=== PATIENT | male | born 1960 | race Caucasian/White ===

== ENCOUNTER → 2016-09-04 | Outpatient (CLI) | payer BC ==
[~2016-09-04] MED LIST: LISI-552 PO; PANT40TA2 PO; SUCR1TAB36 PO
--- OUTSIDE RECORDS SUMMARY | 2016-09-04 08:19 | XMS REPORT | Continuity of Care Document ---
Author Author Formerly [facility], 1928–1983 [facility] Address Unknown Phone Unavailable Allergies Medications Problems Date Dx Coded Attending Type Code Diagnosis Diagnosed By 07/30/2013 YUE GONG DO V04.81 FLU SHOT Procedures Results Encounters ACCT No. Visit Date/Time Discharge Status Pt. Type Provider Facility Loc./Unit Complaint [id number] 07/30/2013 12:19:00 07/30/2013 23: 59:59 CLS Outpatient YUE GONG DO
--- NOTE | 2016-09-04 14:24 | Diagnostic Imaging Report ---
PROCEDURE: US Gallbladder. TECHNIQUE: Multiple real-time grayscale images were obtained over the right upper quadrant in various projections. INDICATION: Epigastric pain with vomiting. FINDINGS: The visualized portions of the pancreas appear unremarkable. The liver demonstrates no focal lesion with homogeneous parenchyma. Hepatopetal flow in the portal vein is seen. The gallbladder demonstrates no stones. There is borderline wall thickness of the gallbladder at 4 mm probably exaggerated by the incomplete distention of the gallbladder. No pericholecystic fluid is seen. The CBD is not well seen with no intrahepatic biliary dilatation identified. The right kidney is 9.8 cm in length with no hydronephrosis or focal lesion. There is no fluid collection in the upper right abdomen. IMPRESSION: No gallstones. Slightly prominent appearance of the gallbladder wall which is probably related to incomplete distention of the gallbladder. This might be explained by recent meal. Dictated by: Dictated on workstation # [id number]
== END ==
LOC: RAD 08:16
PROVIDERS: ATTEND Nurse Practitioner
DX: R10.13 Epigastric pain (principal)
CPT/HCPCS: 76705

== ENCOUNTER → 2016-10-27 | Outpatient (CLI) | payer BC ==
--- NOTE | 2016-10-27 12:17 | Diagnostic Imaging Report ---
PA and lateral views of the chest Indication: Cough Findings: The lungs are clear. The heart size is normal. There is no effusion or pneumothorax The mediastinum and silvana appear unremarkable. Impression: Unremarkable study. Dictated by: Dictated on workstation # [id number]
== END ==
LOC: RAD 11:42
PROVIDERS: ATTEND Nurse Practitioner
DX: R05 Cough (principal); R09.89 Other specified symptoms and signs involving the circulatory and respiratory systems; Z87.891 Personal history of nicotine dependence
CPT/HCPCS: 71020

== ENCOUNTER → 2016-11-18 | Outpatient (CLI) | payer BC ==
--- NOTE | 2016-11-18 12:11 | Diagnostic Imaging Report ---
INDICATION: Pain. TECHNIQUE: Three views of the left foot were obtained. FINDINGS: The alignment is normal. There is no fracture or dislocation. The soft tissues are unremarkable. IMPRESSION: No acute fracture or dislocation. Dictated by: Dictated on workstation # [id number]
--- NOTE | 2016-11-18 12:51 | Diagnostic Imaging Report ---
3 views of the left foot. INDICATION: Left foot pain. FINDINGS: There is no fracture, dislocation or radiopaque foreign body. Joint alignment is satisfactory. IMPRESSION: Unremarkable exam. Dictated by: Dictated on workstation # [id number]
== END ==
LOC: RAD 10:27
PROVIDERS: ATTEND Nurse Practitioner
DX: M79.672 Pain in left foot (principal)
CPT/HCPCS: 73630; 73660

== ENCOUNTER → 2017-08-12 | Outpatient (CLI) | payer BC | LOC: RAD 07:54 | PROVIDERS: ATTEND Nurse Practitioner | DX: Z53.8 Procedure and treatment not carried out for other reasons (principal); S43.431A Superior glenoid labrum lesion of right shoulder, initial encounter; M75.111 Incomplete rotator cuff tear or rupture of right shoulder, not specified as traumatic ==

== ENCOUNTER 2017-11-27 08:45 | Outpatient (RCR) | payer BC | END 2017-11-30 | disposition home or self-care (01) | PROVIDERS: ATTEND Orthopaedic Surgery | DX: M25.511 Pain in right shoulder (principal) ==

== ENCOUNTER 2017-12-02 19:32 | Observation (INO) | payer BC ==
[~2017-12-02] VITALS: Ht 167.6 cm; Wt 77.1 kg
--- OUTSIDE RECORDS SUMMARY | 2017-12-02 19:37 | XMS REPORT | Continuity of Care Document ---
Author Author Formerly [facility] Address Unknown Phone Unavailable Allergies Active Description Code Type Severity Reaction Onset Reported/Identified Relationship to Patient Clinical Status Yes Iodine and Iodide Containing Produc [id number] Drug Allergy Unknown eyes swelled sh 02/12/2016 Yes Sulfa (Sulfonamide Antibiotics) [id number] Drug Allergy Unknown chest pain 02/12/2016 Medications There is no data. Problems Date Dx Coded Attending Type Code Diagnosis Diagnosed By 07/30/2013 YUE GONG DO V04.81 FLU SHOT 09/26/2015 Ot 780.60 09/26/2015 Ot 789.09 09/26/2015 Ot 780.60 09/26/2015 Ot 789.09 09/28/2015 Ot 780.60 09/28/2015 Ot 789.09 09/28/2015 Ot 780.60 09/28/2015 Ot 789.09 10/11/2015 Ot 780.60 10/11/2015 Ot 789.09 10/11/2015 Ot 780.60 10/11/2015 Ot 789.09 02/07/2016 Ot 780.60 FEVER, UNSPECIFIED 02/07/2016 Ot 789.09 ABDOMINAL PAIN, OTHER SPECIFIED SITE 02/07/2016 Ot 780.60 FEVER, UNSPECIFIED 02/07/2016 Ot 789.09 ABDOMINAL PAIN, OTHER SPECIFIED SITE 02/12/2016 MAINOR HOFF MD Ot K21.9 GASTRO-ESOPHAGEAL REFLUX DISEASE WITHOUT 02/12/2016 MAINOR HOFF MD Ot Z01.818 ENCOUNTER FOR OTHER PREPROCEDURAL EXAMIN 02/12/2016 MAINOR HOFF MD, Ot K21.9 GASTRO-ESOPHAGEAL REFLUX DISEASE WITHOUT 02/12/2016 MAINOR HOFF MD Ot Z01.818 ENCOUNTER FOR OTHER PREPROCEDURAL EXAMIN 02/12/2016 MAINOR HOFF MD Ot K21.9 GASTRO-ESOPHAGEAL REFLUX DISEASE WITHOUT 02/12/2016 MAINOR HOFF MD Ot Z01.818 ENCOUNTER FOR OTHER PREPROCEDURAL EXAMIN 02/12/2016 MAINOR HOFF MD Ot K21.9 GASTRO-ESOPHAGEAL REFLUX DISEASE WITHOUT 02/12/2016 MAINOR HOFF MD Ot Z01.818 ENCOUNTER FOR OTHER PREPROCEDURAL EXAMIN 02/12/2016 MAINOR HOFF MD Ot K21.9 GASTRO-ESOPHAGEAL REFLUX DISEASE WITHOUT 02/12/2016 MAINOR HOFF MD Ot Z01.818 ENCOUNTER FOR OTHER PREPROCEDURAL EXAMIN 02/13/2016 MAINOR HOFF MD Ot K21.9 GASTRO-ESOPHAGEAL REFLUX DISEASE WITHOUT 02/13/2016 MAINOR HOFF MD Ot Z01.818 ENCOUNTER FOR OTHER PREPROCEDURAL EXAMIN 02/13/2016 MAINOR HOFF MD Ot I10 ESSENTIAL (PRIMARY) HYPERTENSION 02/13/2016 MAINOR HOFF MD Ot K21.9 GASTRO-ESOPHAGEAL REFLUX DISEASE WITHOUT 02/13/2016 MAINOR HOFF MD Ot K29.70 GASTRITIS, UNSPECIFIED, WITHOUT BLEEDING 02/13/2016 MAINOR HOFF MD Ot K44.9 DIAPHRAGMATIC HERNIA WITHOUT OBSTRUCTION 02/14/2016 MAINOR HOFF MD Ot I10 ESSENTIAL (PRIMARY) HYPERTENSION 02/14/2016 MAINOR HOFF MD Ot K21.9 GASTRO-ESOPHAGEAL REFLUX DISEASE WITHOUT 02/14/2016 MAINOR HOFF MD Ot K29.70 GASTRITIS, UNSPECIFIED, WITHOUT BLEEDING 02/14/2016 MAINOR HOFF MD Ot K44.9 DIAPHRAGMATIC HERNIA WITHOUT OBSTRUCTION 02/18/2016 MAINOR HOFF MD Ot I10 ESSENTIAL (PRIMARY) HYPERTENSION 02/18/2016 MAINOR HOFF MD Ot K21.9 GASTRO-ESOPHAGEAL REFLUX DISEASE WITHOUT 02/18/2016 MAINOR HOFF MD Ot K29.70 GASTRITIS, UNSPECIFIED, WITHOUT BLEEDING 02/18/2016 MAINOR HOFF MD Ot K44.9 DIAPHRAGMATIC HERNIA WITHOUT OBSTRUCTION 09/04/2016 Ot 780.60 FEVER, UNSPECIFIED 09/04/2016 Ot 789.09 ABDOMINAL PAIN, OTHER SPECIFIED SITE 09/04/2016 Ot 780.60 FEVER, UNSPECIFIED 09/04/2016 Ot 789.09 ABDOMINAL PAIN, OTHER SPECIFIED SITE 09/05/2016 ABEBE, LEVI N BAR HELPER Ot R10.13 EPIGASTRIC PAIN 09/18/2016 LEVI LOMAS BAR HELPER Ot R10.13 EPIGASTRIC PAIN 10/27/2016 LEVI LOMAS BAR HELPER Ot R05 COUGH 10/27/2016 ABEBE LEVI N BAR HELPER Ot R09.89 OTH SYMPTOMS AND SIGNS INVOLVING THE CIR 10/27/2016 LUNA LOMASVIVIAN Malcolm BAR HELPER Ot Z87.891 PERSONAL HISTORY OF NICOTINE DEPENDENCE 11/14/2016 LEVI LOMAS BAR HELPER Ot R05 COUGH 11/14/2016 ABEBE LEVI N BAR HELPER Ot R09.89 OTH SYMPTOMS AND SIGNS INVOLVING THE CIR 11/14/2016 LEVI LOMAS BAR HELPER Ot Z87.891 PERSONAL HISTORY OF NICOTINE DEPENDENCE 12/04/2016 LEVI LOMAS APRN Ot M79.672 PAIN IN LEFT FOOT 08/13/2017 ARNEL MAIER Ot M75.111 INCOMPLETE ROTATR-CUFF TEAR/RUPTR OF R S 08/13/2017 ARNEL MAIER EXTRUSION DIE REPAIR MANAGER Ot S43.431A SUPERIOR GLENOID LABRUM LESION OF RIGHT 08/13/2017 ARNEL MAIER EXTRUSION DIE REPAIR MANAGER Ot Z53.8 PROCEDURE AND TREATMENT NOT CARRIED OUT 08/13/2017 ARNEL MAIER EXTRUSION DIE REPAIR MANAGER Ot M75.111 INCOMPLETE ROTATR-CUFF TEAR/RUPTR OF R S 08/13/2017 ARNEL MAIER EXTRUSION DIE REPAIR MANAGER Ot S43.431A SUPERIOR GLENOID LABRUM LESION OF RIGHT 08/13/2017 ARNEL MAIER EXTRUSION DIE REPAIR MANAGER Ot Z53.8 PROCEDURE AND TREATMENT NOT CARRIED OUT 09/30/2017 Ot 780.60 FEVER, UNSPECIFIED 09/30/2017 Ot 789.09 ABDOMINAL PAIN, OTHER SPECIFIED SITE 09/30/2017 Ot 780.60 FEVER, UNSPECIFIED 09/30/2017 Ot 789.09 ABDOMINAL PAIN, OTHER SPECIFIED SITE 09/30/2017 LEVI LOMAS BAR HELPER Ot R10.13 EPIGASTRIC PAIN 09/30/2017 LEVI LOMAS BAR HELPER Ot R05 COUGH 09/30/2017 LEVI LOMAS BAR HELPER Ot R09.89 OTH SYMPTOMS AND SIGNS INVOLVING THE CIR 09/30/2017 LEVI LOMAS BAR HELPER Ot Z87.891 PERSONAL HISTORY OF NICOTINE DEPENDENCE 09/30/2017 LEVI LOMAS APRN Ot M79.672 PAIN IN LEFT FOOT 09/30/2017 ARNEL MAIER Ot M75.111 INCOMPLETE ROTATR-CUFF TEAR/RUPTR OF R S 09/30/2017 ARNEL MAIER Ot S43.431A SUPERIOR GLENOID LABRUM LESION OF RIGHT 09/30/2017 ARNEL MAIER Ot Z53.8 PROCEDURE AND TREATMENT NOT CARRIED OUT 09/30/2017 WILBER NICKERSON MD Ot M25.511 PAIN IN RIGHT SHOULDER 10/02/2017 WILBER NICKERSON MD, Ot M25.511 PAIN IN RIGHT SHOULDER 10/21/2017 WILBER NICKERSON MD, Ot M25.511 PAIN IN RIGHT SHOULDER Procedures There is no data. Results There is no data. Encounters ACCT No. Visit Date/Time Discharge Status Pt. Type Provider Facility Loc./Unit Complaint [id number] 07/30/2013 12:19:00 07/30/2013 23:59:59 CLS Outpatient YUE GONG DO 01/201708/07/2017 09:28:34 08/07/2017 23:59:59 CLS Outpatient Marisela Harris [id number] 11/27/2017 08:45:00 11/30/2017 00:01:00 DIS Outpatient WILBER NICKERSON MD Via [facility] REHAB OPEN RCR R SHOULDER [id number] 08/12/2017 07:54:00 08/12/2017 23:59:59 CLS Outpatient ARNEL MAIER [facility] RAD ROTATOR CUFF TEAR PARTIAL RT [id number] 11/18/2016 10:27:00 11/18/2016 23:59:59 CLS Outpatient LEVI LOMAS BAR HELPER [facility] RAD LT FOOT AND 2ND TOE PAIN [id number] 10/27/2016 11:42:00 10/27/2016 23:59:59 CLS Outpatient LEVI LOMAS BAR HELPER [facility] RAD COUGH,CHEST CONGESTION [id number] 09/04/2016 08:16:00 09/04/2016 23:59:59 CLS Outpatient LEVI LOMAS BAR HELPER [facility] RAD R10.13 [id number] 02/13/2016 10:02:00 02/13/2016 12:30:00 DIS Outpatient MAINOR HOFF MD [facility] SDC REFLUX [id number] 02/12/2016 10:30:00 02/12/2016 11:15:00 DIS Outpatient MAINOR HOFF MD [facility] PREOP REFLUX [id number] 12/01/2017 00:11:00 PEN Preadmit WILBER NICKERSON MD [facility] REHAB OPEN RCR R SHOULDER [id number] 02/12/2016 11:08:00 Document Registration [id number] 05/06/2012 07:46:00 Document Registration [id number] 05/05/2012 15:43:00 Document Registration
[2017-12-02] MEDS ORDERED: LACTATED RINGERS 1,000 ML IV ONE (19:41)
[2017-12-02 19:49] VITALS: BP 126/95
[2017-12-02 19:51] LABS: BILIRUBIN,URINE NEGATIVE (NEGATIVE); CLARITY,URINE CLEAR; COLOR,URINE YELLOW; GLUCOSE, URINE (UA) NEGATIVE (NEGATIVE); KETONES,URINE NEGATIVE (NEGATIVE); LEUKOCYTE ESTERASE ,URINE NEGATIVE (NEGATIVE); NITRITE,URINE NEGATIVE (NEGATIVE); PH,URINE 6.5 (5-9); PROTEIN,URINE NEGATIVE (NEGATIVE); UROBILINOGEN,URINE NORMAL (NORMAL)
[2017-12-02 19:57] LABS: BASOPHILS # (AUTO) 0.1 10^3/uL (0.0-0.1); BASOPHILS % (AUTO) 1 % (0-10); EOSINOPHILS # (AUTO) 0.8 10^3/uL (0.0-0.3); EOSINOPHILS % (AUTO) 8 % (0-10); HEMATOCRIT 42 % (40-54); HEMOGLOBIN 14.7 G/DL (13.3-17.7); LYMPHOCYTES # (AUTO) 2.3 X 10^3 (1.0-4.0); LYMPHOCYTES % (AUTO) 24 % (12-44); MEAN CORPUSCULAR HEMOGLOBIN 30 PG (25-34); MEAN CORPUSCULAR HGB CONC 35 G/DL (32-36); MEAN CORPUSCULAR VOLUME 84 FL (80-99); MEAN PLATELET VOLUME 10.5 FL (7.4-10.4); MONOCYTES # (AUTO) 0.8 X 10^3 (0.0-1.0); MONOCYTES % (AUTO) 8 % (0-12); NEUTROPHILS # (AUTO) 5.7 X 10^3 (1.8-7.8); NEUTROPHILS % (AUTO) 59 % (42-75); PLATELET COUNT 211 10^3/uL (130-400); RED BLOOD COUNT 4.98 10^6/uL (4.35-5.85); RED CELL DISTRIBUTION WIDTH 13.1 % (10.0-14.5); WHITE BLOOD COUNT 9.6 10^3/uL (4.3-11.0)
[2017-12-02 20:02] LABS: BACTERIA,URINE NEGATIVE /HPF; WBC,URINE RARE /HPF
--- NOTE | 2017-12-02 20:09 | Diagnostic Imaging Report ---
INDICATION: Right lower quadrant pain. KUB at 08:24 p.m. FINDINGS: There are postop changes from hernia surgery in the left lower abdomen. Bowel gas pattern is normal. There are no pathologic masses or fluid collections. IMPRESSION: No acute abnormalities in the abdomen. Dictated by: Dictated on workstation # [id number]
--- NOTE | 2017-12-02 20:15 | Diagnostic Imaging Report ---
PROCEDURE: CT urinary tract, rule out kidney stone. TECHNIQUE: Multiple contiguous axial images were obtained through the abdomen and pelvis without the use of intravenous contrast. INDICATION: Right lower quadrant pain. FINDINGS: Lung bases are clear. Liver appears normal. Gallbladder is decompressed. Pancreas is normal. Spleen is not enlarged. Adrenals appear normal. Kidneys appear normal. There is no hydronephrosis. Ureters are not dilated. The appendix is normal. Small bowel is normal. There is diverticulosis of the sigmoid colon but no evidence of diverticulitis. There is no intraperitoneal free air or free fluid. Urinary bladder is normal. IMPRESSION: Uncomplicated diverticulosis of the sigmoid colon. No evidence of nephroureteral calculus. Dictated by: Dictated on workstation # [id number]
[2017-12-02 20:16] LABS: ALANINE AMINOTRANSFERASE 41 U/L (0-55); ALBUMIN 4.5 GM/DL (3.2-4.5); ALKALINE PHOSPHATASE 78 U/L (40-136); AMYLASE 43 U/L (25-125); BUN/CREATININE RATIO 12; CALCIUM 9.4 MG/DL (8.5-10.1); CARBON DIOXIDE 20 MMOL/L (21-32); CHLORIDE 107 MMOL/L (98-107); CREATININE SERUM 1.13 MG/DL (0.60-1.30); GFR ESTIMATED > 60; GLUCOSE 125 MG/DL (70-105); LIPASE 27 U/L (8-78); POTASSIUM 3.9 MMOL/L (3.6-5.0); SODIUM 141 MMOL/L (135-145); TOTAL PROTEIN 7.6 GM/DL (6.4-8.2)
--- NOTE | 2017-12-02 20:20 | ED Abdominal Pain ---
General Chief Complaint: Abdominal/GI Problems Stated Complaint: RLQ PAIN Nursing Triage Note: RLQ pain developed this a.m. Off and on pain through day, worsened after a BM 45 min MANAGER OF IT. Sepsis Screen: No Definite Risk Source of Information: Patient Exam Limitations: No Limitations History of Present Illness Date Seen by Provider: December 02, 2017 Time Seen by Provider: 19:35 Initial Comments PT ARRIVES VIA POV FROM HOME C/O ABDOMINAL PAIN THAT BEGAN THIS MORNING AND HAS PROGRESSIVELY GOTTEN WORSE THROUGHOUT THE DAY STATES HE HAD MID ABDOMINAL/PERIUMBILICAL PAIN THIS AM, AND HAS GRADUALLY MOVED TO RLQ STATES PAIN WAXES AND WANES AND IS VERY SHARP AT TIMES AND DOUBLES HIM OVER IN PAIN PAIN WAS VERY INTENSE APPROXIMATELY 45 MINUTES AGO, AFTER HAVING A BM. PAIN IS BETTER NOW, BUT IS NOT GONE PAIN RADIATES TO RIGHT GROIN AREA PAIN IS WORSE WITH LAYING FLAT, AND WITH RELEASING PRESSURE AFTER PRESSING ON HIS RLQ AREA NO NAUSEA/VOMITING NO FEVER NO DIARRHEA NO URINARY SYMPTOMS NO BACK PAIN NO HISTORY OF SIMILAR PCP: DR. LEAL Allergies and Home Medications Allergies Coded Allergies: Iodine and Iodide Containing Produc (Verified Allergy, Unknown, eyes swelled shut, 02/12/16) Sulfa (Sulfonamide Antibiotics) (Verified Allergy, Unknown, chest pain, ) Home Medications Lisinopril 20 Mg Tablet, 20 MG PO DAILY, (Reported) Pantoprazole Sodium 40 Mg Tablet.dr, 40 MG PO DAILY, (Reported) Patient Home Medication List Home Medication List Reviewed: Yes Review of Systems Constitutional: no symptoms reported Respiratory: No Symptoms Reported Cardiovascular: No Symptoms Reported Gastrointestinal: See HPI, Abdominal Pain; Denies Constipated, Denies Diarrhea , Denies Nausea, Denies Vomiting Genitourinary: No Symptoms Reported Musculoskeletal: no symptoms reported Skin: no symptoms reported Psychiatric/Neurological: No Symptoms Reported Endocrine: No Symptoms Reported Hematologic/Lymphatic: No Symptoms Reported Past Xafefls-Lgwhzp-Skqyvs Hx Patient Social History Alcohol Use: Regular Use (4-5 BEERS A DAY) Number of Drinks Today: 1 Alcohol Beverage of Choice: Beer Recreational Drug Use: No Smoking Status: Former Smoker (1 PPD, QUIT 2007) Type Used: Cigarettes Former Smoker, Quit: Oct 13, 2005 2nd Hand Smoke Exposure: No Recent Foreign Travel: No Contact w/Someone Who Travel: No Recent Infectious Disease Expo: No Recent Hopitalizations: No Seasonal Allergies Seasonal Allergies: No Past Medical History Surgeries: Yes (LEFT INGUINAL HERNIA; LEFT KNEE SCOPE; RIGHT ELBOW SURGERY; SHOULDER SURGERY) Abdominal, Orthopedic Respiratory: No Cardiac: Yes Hypertension Neurological: No Genitourinary: Yes (PROSTATITIS) Prostate Problems Gastrointestinal: Yes Gastroesophageal Reflux, Diverticulosis Musculoskeletal: No Endocrine: No HEENT: No Cancer: No Psychosocial: No Integumentary: No Blood Disorders: No Physical Exam Vital Signs Vital Signs - First Documented 12/02/17 19:33 Temp 98.5 Pulse 80 Resp 20 B/P (MAP) 149/108 (122) Pulse Ox 97 O2 Delivery Room Air Capillary Refill : Less Than 3 Seconds General Appearance: WD/WN, no apparent distress Respiratory: normal breath sounds, no respiratory distress, no accessory muscle use Cardiovascular: regular rate, rhythm, no murmur Gastrointestinal: normal bowel sounds, soft, no organomegaly, no pulsatile mass ; No distended, No guarding; rebound, tenderness (RLQ); No hernia, No mass; other (NEGATIVE HEEL TAP, NEGATIVE PSOAS, NEGATIVE OBTURATOR, EQUIVOCAL ROVSING' S. PAIN INCREASES WITH LAYING FLAT) Extremities: normal inspection Back: no CVA tenderness Neurologic/Psychiatric: fibrous plasterer II-XII nml as tested, no motor/sensory deficits, alert, normal mood/affect, oriented x 3 Skin: normal color, warm/dry; No rash Progress/Results/Core Measures Results/Orders Lab Results Laboratory Tests Test 12/02/17 19:35 12/02/17 19:47 Range/Units Urine Color YELLOW Urine Clarity CLEAR Urine pH 6.5 5-9 Urine Specific Sylva 1.010 L 1.016-1.022 Urine Protein NEGATIVE NEGATIVE Urine Glucose (UA) NEGATIVE NEGATIVE Urine Ketones NEGATIVE NEGATIVE Urine Nitrite NEGATIVE NEGATIVE Urine Bilirubin NEGATIVE NEGATIVE Urine Urobilinogen NORMAL NORMAL MG/DL Urine Leukocyte Esterase NEGATIVE NEGATIVE Urine RBC (Auto) NEGATIVE NEGATIVE Urine RBC NONE /HPF Urine WBC RARE /HPF Urine Crystals NONE /LPF Urine Bacteria NEGATIVE /HPF Urine Casts NONE /LPF Urine Mucus NEGATIVE /LPF Urine Culture Indicated NO White Blood Count 9.6 4.3-11.0 10^3/uL Red Blood Count 4.98 4.35-5.85 10^6/uL Hemoglobin 14.7 13.3-17.7 G/DL Hematocrit 42 40-54 % Mean Corpuscular Volume 84 80-99 FL Mean Corpuscular Hemoglobin 30 25-34 PG Mean Corpuscular Hemoglobin Concent 35 32-36 G/DL Red Cell Distribution Width 13.1 10.0-14.5 % Platelet Count 211 130-400 10^3/uL Mean Platelet Volume 10.5 H 7.4-10.4 FL Neutrophils (%) (Auto) 59 42-75 % Lymphocytes (%) (Auto) 24 12-44 % Monocytes (%) (Auto) 8 0-12 % Eosinophils (%) (Auto) 8 0-10 % Basophils (%) (Auto) 1 0-10 % Neutrophils # (Auto) 5.7 1.8-7.8 X 10^3 Lymphocytes # (Auto) 2.3 1.0-4.0 X 10^3 Monocytes # (Auto) 0.8 0.0-1.0 X 10^3 Eosinophils # (Auto) 0.8 H 0.0-0.3 10^3/uL Basophils # (Auto) 0.1 0.0-0.1 10^3/uL Sodium Level 141 135-145 MMOL/L Potassium Level 3.9 3.6-5.0 MMOL/L Chloride Level 107 98-107 MMOL/L Carbon Dioxide Level 20 L 21-32 MMOL/L Anion Gap 14 5-14 MMOL/L Blood Urea Nitrogen 14 7-18 MG/DL Creatinine 1.13 0.60-1.30 MG/DL Estimat Glomerular Filtration Rate > 60 BUN/Creatinine Ratio 12 Glucose Level 125 H 70-105 MG/DL Calcium Level 9.4 8.5-10.1 MG/DL Total Bilirubin 1.0 0.1-1.0 MG/DL Aspartate Amino Transf (AST/SGOT) 27 5-34 U/L Alanine Aminotransferase (ALT/SGPT) 41 0-55 U/L Alkaline Phosphatase 78 40-136 U/L Total Protein 7.6 6.4-8.2 GM/DL Albumin 4.5 3.2-4.5 GM/DL Amylase Level 43 25-125 U/L Lipase 27 8-78 U/L My Orders Orders - DULCE,SERENE K DO Saline Lock/Iv-Start (12/02/17 19:41) Ct Abd/Pelvis Wo(Kidney Stone) (12/02/17 19:41) Amylase (12/02/17 19:41) Cbc With Automated Diff (12/02/17 19:41) Comprehensive Metabolic Panel (12/02/17 19:41) Lipase (12/02/17 19:41) Ua Culture If Indicated (12/02/17 19:41) Abdomen/Kub 1view (12/02/17 19:41) Saline Lock/Iv-Start (12/02/17 19:41) Lactated Ringers (Lr 1000 Ml Iv Solution (12/02/17 19:41) Medications Given in ED Current Medications Medications Dose Ordered Sig/Saeid Route Start Time Stop Time Status Last Admin Dose Admin Lactated Ringer's 1,000 ml @ 0 mls/hr Q0M ONCE IV 12/02/17 19:41 12/02/17 19:43 DC 12/02/17 19:52 999 MLS/HR Vital Signs/I&O 12/02/17 12/02/17 19:33 19:49 Temp 98.5 98.5 Pulse 80 76 Resp 20 20 B/P (MAP) 149/108 (122) 126/95 (105) Pulse Ox 97 97 O2 Delivery Room Air Room Air Blood Pressure Mean: 122 Progress Progress Note : Progress Note PT HAD A FEW EPISODES OF SHARP PAIN--LASTING A SHORT PERIOD OF TIME, BUT DECLINED ANY PAIN MEDICATIONS IN ER STATES IT DOES NOT HURT TOO BAD UNLESS YOU PUSH ON IT, AND IS WORSE WHEN YOU LET UP PRESSURE Diagnostic Imaging Comments KUB--NO ACUTE PROCESS CT ABDOMEN/PELVIS--DIVERTICULAR DISEASE WITHOUT ACUTE DIVERTICULITIS, NO ACUTE PROCESS, NO URETERAL/RENAL STONES, NORMAL APPENDIX PER RADIOLOGIST REPORTS @ 2019 Reviewed: Reviewed by Me Departure Communication (Admissions) 2023--SPOKE WITH DR. HOFF, ACCEPTS PT FOR ADMIT. ORDERS NOTED. Impression Primary Impression: RLQ abdominal pain Disposition: ADMITTED INPATIENT Condition: Stable Admissions Decision to Admit Reason: Admit from ER (General) Decision to Admit/Date: December 02, 2017 Time/Decision to Admit Time: 20:25 Departure-Patient Inst. Referrals: MESHA LEAL DO (PCP/Family) Primary Care Physician SERENE CARDONA DO December 02, 2017 20:20
[2017-12-02 21:00] VITALS: BP 136/91
[2017-12-02] MEDS ORDERED: D5 1/2 NS 1000 ML IV SOLUTION 1,000 ML IV ONE (21:07)
[2017-12-02] MEDS ORDERED: ONDANSETRON 4 MG/2 ML (SDV) Z0FRAN IV PRN (21:30)
[2017-12-02] MEDS ORDERED: CATHETER FLUSH 10 ML SYR IV PRN (21:30)
[2017-12-02] MEDS ORDERED: morphine INJ 4 MG/ML 1 ML (VIAL/SYRINGE) IV PRN (21:30)
[2017-12-02] MEDS: D5 1/2 NS 1000 ML IV SOLUTION 1,000 ML IV SCH (21:35)
[2017-12-02] MEDS: CATHETER FLUSH 10 ML SYR IV SCH (22:22)
[2017-12-03 00:40] VITALS: BP 137/95
[2017-12-03 04:24] VITALS: BP 142/95
[2017-12-03] MEDS: D5 1/2 NS 1000 ML IV SOLUTION 1,000 ML IV SCH ×2 (04:34→10:53)
[2017-12-03] MEDS: CATHETER FLUSH 10 ML SYR IV SCH (04:43)
[2017-12-03 06:06] LABS: BASOPHILS % (AUTO) 1 % (0-10); EOSINOPHILS # (AUTO) 0.6 10^3/uL (0.0-0.3); EOSINOPHILS % (AUTO) 11 % (0-10); HEMATOCRIT 40 % (40-54); HEMOGLOBIN 14.2 G/DL (13.3-17.7); LYMPHOCYTES # (AUTO) 1.4 X 10^3 (1.0-4.0); LYMPHOCYTES % (AUTO) 26 % (12-44); MEAN CORPUSCULAR HEMOGLOBIN 30 PG (25-34); MEAN CORPUSCULAR HGB CONC 36 G/DL (32-36); MEAN CORPUSCULAR VOLUME 85 FL (80-99); MEAN PLATELET VOLUME 11.1 FL (7.4-10.4); MONOCYTES # (AUTO) 0.6 X 10^3 (0.0-1.0); MONOCYTES % (AUTO) 10 % (0-12); NEUTROPHILS # (AUTO) 2.9 X 10^3 (1.8-7.8); NEUTROPHILS % (AUTO) 52 % (42-75); PLATELET COUNT 182 10^3/uL (130-400); RED BLOOD COUNT 4.67 10^6/uL (4.35-5.85); RED CELL DISTRIBUTION WIDTH 12.8 % (10.0-14.5); WHITE BLOOD COUNT 5.5 10^3/uL (4.3-11.0)
--- NOTE | 2017-12-03 06:10 | HISTORY AND PHYSICAL ---
DATE OF SERVICE: 12/02/2017 ATTENDING PRIMARY CARE PHYSICIAN: Marisela Harris DO HISTORY OF PRESENT ILLNESS: The patient is a 57-year-old male, who presented to the Emergency Department with a one day history of pain, which initially started in the periumbilical region; however, did localize towards the right lower abdominal quadrant. He reports that the pain persisted and worsened over time as well. He does not report any fever nor chills as well as no nausea, no vomiting. He also does not report any major issues of constipation as well as no diarrhea. He does have pain at McBurney's point upon palpation with voluntary guarding. A CT scan was performed, which did show a normal caliber appendix; however, there was a question of a possible small appendicolith at the tip of the appendix, which may indicate an early acute appendicitis. He does not report any past history of intermittent episodes of crampy abdominal pain or diarrhea to indicate any undiagnosed inflammatory bowel disease. PAST MEDICAL HISTORY: Hypertension, gastroesophageal reflux disease. PAST SURGICAL HISTORY: Left knee arthroscopy, right elbow surgery, inguinal hernia repair. ALLERGIES: IODINE, SULFA. MEDICATIONS: Lisinopril 20 mg daily, Protonix 40 mg daily. SOCIAL HISTORY: Previous smoker, quit 2005. He does drink beer daily. FAMILY HISTORY: Noncontributory. REVIEW OF SYSTEMS: This is a well nourished male, currently guarded secondary to the abdominal pain. He is not experiencing any shortness of breath or difficulty breathing. No chest pain, palpitations, diaphoresis. No nausea, vomiting. No diarrhea, constipation. No red blood per rectum. No dark tarry stools. No fever, chills. No recent inadvertent weight loss. All other review of systems negative. PHYSICAL EXAMINATION: VITAL SIGNS: Temperature 98.5, blood pressure 149/108, pulse 80, respirations 20, pulse ox 97% on room air. CHEST: Clear. Good breath sounds bilaterally. HEART: Regular, no murmurs. EXTREMITIES: No lower extremity edema. Negative Homans sign. HEENT: No scleral icterus. NECK: No cervical lymphadenopathy. ABDOMEN: Soft, nondistended. There is pain at McBurney's point upon palpation with voluntary guarding, no rebound. SKIN: Warm, dry. LABORATORY DATA: WBC 9.6, hemoglobin 14.7, hematocrit 42, platelets 211. BUN 14, creatinine 1.13. Liver function, enzymes are normal. ASSESSMENT AND PLAN: A 57-year-old male with a right lower abdominal quadrant pain at McBurney's point with voluntary guarding, no rebound. Based on his clinical presentation as well as the CT scan, there is a potential for early acute appendicitis. We will admit him and monitor him. If he has persistent or worsening pain, we will proceed with a diagnostic laparoscopy and laparoscopic appendectomy as appropriate. Job ID: [id number] DocumentID: [id number] Dictated Date: 12/02/2017 20:41:23 [employer] Date: 12/02/2017 21:01:40 Dictated By: MAINOR HOFF MD
[2017-12-03 06:23] LABS: ALANINE AMINOTRANSFERASE 34 U/L (0-55); ALBUMIN 3.8 GM/DL (3.2-4.5); ALKALINE PHOSPHATASE 63 U/L (40-136); BILIRUBIN,TOTAL 1.3 MG/DL (0.1-1.0); BUN/CREATININE RATIO 11; CALCIUM 8.9 MG/DL (8.5-10.1); CARBON DIOXIDE 21 MMOL/L (21-32); CHLORIDE 110 MMOL/L (98-107); CREATININE SERUM 1.02 MG/DL (0.60-1.30); GFR ESTIMATED > 60; GLUCOSE 130 MG/DL (70-105); POTASSIUM 3.9 MMOL/L (3.6-5.0); SODIUM 141 MMOL/L (135-145); TOTAL PROTEIN 6.5 GM/DL (6.4-8.2)
[2017-12-03 08:00] VITALS: BP 162/78
[2017-12-03] MEDS ORDERED: CETI10TA20 PO (08:37)
[2017-12-03] MEDS ORDERED: PANT40TA3 PO (08:37)
[2017-12-03] MEDS ORDERED: POLYETHYLENE GLYCOL 17 GM (MIRALAX) PACK PO NR (08:46)
[2017-12-03 11:29] VITALS: BP 138/93
--- NOTE | 2017-12-04 10:25 | Physician Query-Final Dx ---
CARMENZA WORLEY 12/04/17 1025: Final Diagnosis Give Final Diagnosis Please give Final Diagnosis MAINOR HOFF MD 12/04/17 1027: Final Diagnosis Give Final Diagnosis constipation with abdominal pain CARMENZA WORLEY December 04, 2017 10:25 MAINOR HOFF MD December 04, 2017 10:27
== END 2017-12-03 16:26 | disposition home or self-care (01) ==
LOC: EDUNIT# 19:32 → ER 19:33 → UNDOADMOB 20:37 → 4TH 20:37 → UNDODISOB 12-03 16:30
PROVIDERS: ADMIT Surgery; ATTEND Surgery
DX: K59.09 Other constipation (principal); R10.33 Periumbilical pain; I10 Essential (primary) hypertension; K21.9 Gastro-esophageal reflux disease without esophagitis; Z88.2 Allergy status to sulfonamides; Z79.899 Other long term (current) drug therapy; Z87.891 Personal history of nicotine dependence
CPT/HCPCS: 36415; 74018; 74176; 80053; 81000; 82150; 83690; 85025; 96360; G0378

== ENCOUNTER 2018-01-15 16:24 | Outpatient (RCR) | payer BC ==
[~2018-01-15 16:24] MED LIST changes: +CETI10TA20 PO; +PANT40TA3 PO
== END 2018-01-18 07:54 | disposition home or self-care (01) ==
PROVIDERS: ATTEND Orthopaedic Surgery
DX: M25.511 Pain in right shoulder (principal)

== ENCOUNTER → 2019-07-26 | Outpatient (CLI) | payer BC ==
--- NOTE | 2019-07-26 13:51 | Diagnostic Imaging Report ---
PROCEDURE: US Gallbladder. TECHNIQUE: Multiple real-time grayscale images were obtained over the right upper quadrant in various projections. INDICATION: Right upper quadrant pain and diarrhea. FINDINGS: The liver is normal in size at 16 cm. No discrete liver mass is detected. The portal vein is patent and shows normal direction of flow. Gallbladder is without stones or sludge. No wall thickening or biliary ductal dilatation is identified. Pancreas is poorly visualized due to bowel gas. Aorta proximally appears to be nonaneurysmal. IVC is unremarkable. Right kidney is without calculi or hydronephrosis. There is no ascites. IMPRESSION: Unremarkable gallbladder ultrasound. Dictated by: Dictated on workstation # [id number]
== END ==
LOC: RAD 06:57
PROVIDERS: ATTEND Family Medicine
DX: R10.11 Right upper quadrant pain (principal); R19.7 Diarrhea, unspecified
CPT/HCPCS: 76705

== ENCOUNTER → 2019-08-08 | Outpatient (CLI) | payer BC ==
[~2019-08-08] MED LIST changes: +CATHETER FLUSH 10 ML SYR IV PRN
--- NOTE | 2019-08-08 12:41 | Diagnostic Imaging Report ---
INDICATION: Right upper quadrant pain. TECHNIQUE: Patient was administered 5.1 mCi of technetium-99m Choletec intravenously, and imaging over the abdomen was performed. After 60 minutes, patient ingested one can of Ensure, and a gallbladder ejection fraction was calculated. FINDINGS: Homogeneous uptake of activity by the liver is seen. There is prompt excretion of activity into the common duct and gallbladder. Normal passage of activity into the small bowel is seen. Gallbladder ejection fraction is normal at 74%. IMPRESSION: Normal HIDA scan and gallbladder ejection fraction. Dictated by: Dictated on workstation # [id number]
== END ==
LOC: CARD 09:48
PROVIDERS: ATTEND Family Medicine
DX: R10.11 Right upper quadrant pain (principal); R19.7 Diarrhea, unspecified
CPT/HCPCS: 78227

== ENCOUNTER → 2019-08-09 | Outpatient (CLI) | payer BC ==
[~2019-08-09] MED LIST changes: -CATHETER FLUSH 10 ML SYR IV PRN
[2019-08-09 11:56] LABS: BASOPHILS % (AUTO) 0 % (0-10); EOSINOPHILS # (AUTO) 0.4 10^3/uL (0.0-0.3); EOSINOPHILS % (AUTO) 4 % (0-10); HEMATOCRIT 45 % (40-54); HEMOGLOBIN 15.6 G/DL (13.3-17.7); LYMPHOCYTES # (AUTO) 1.7 X 10^3 (1.0-4.0); LYMPHOCYTES % (AUTO) 16 % (12-44); MEAN CORPUSCULAR HEMOGLOBIN 30 PG (25-34); MEAN CORPUSCULAR HGB CONC 35 G/DL (32-36); MEAN CORPUSCULAR VOLUME 86 FL (80-99); MEAN PLATELET VOLUME 10.7 FL (7.4-10.4); MONOCYTES # (AUTO) 0.8 X 10^3 (0.0-1.0); MONOCYTES % (AUTO) 8 % (0-12); NEUTROPHILS # (AUTO) 7.4 X 10^3 (1.8-7.8); NEUTROPHILS % (AUTO) 72 % (42-75); PLATELET COUNT 219 10^3/uL (130-400); RED CELL DISTRIBUTION WIDTH 12.8 % (10.0-14.5); WHITE BLOOD COUNT 10.3 10^3/uL (4.3-11.0)
[2019-08-09 12:21] LABS: ALANINE AMINOTRANSFERASE 28 U/L (0-55); ALBUMIN 4.6 GM/DL (3.2-4.5); ALKALINE PHOSPHATASE 60 U/L (40-136); BILIRUBIN,TOTAL 0.7 MG/DL (0.1-1.0); BUN/CREATININE RATIO 13; CALCIUM 9.8 MG/DL (8.5-10.1); CARBON DIOXIDE 25 MMOL/L (21-32); CHLORIDE 105 MMOL/L (98-107); CREATININE SERUM 1.06 MG/DL (0.60-1.30); GFR ESTIMATED > 60; GLUCOSE 103 MG/DL (70-105); POTASSIUM 4.8 MMOL/L (3.6-5.0); SODIUM 138 MMOL/L (135-145); TOTAL PROTEIN 7.8 GM/DL (6.4-8.2)
--- NOTE | 2019-08-09 12:42 | Diagnostic Imaging Report ---
PROCEDURE: CT urinary tract, rule out kidney stone. TECHNIQUE: Multiple contiguous axial images were obtained through the abdomen and pelvis without the use of intravenous contrast. Auto Exposure Controls were utilized during the CT exam to meet ALARA standards for radiation dose reduction. INDICATION: Right flank pain and hematuria. COMPARISON: Correlation is made with prior CT from 12/02/2017. FINDINGS: The lung bases are clear. No discrete liver mass is detected. The gallbladder is unremarkable. No biliary ductal dilatation is identified. The pancreas and spleen are unremarkable. No adrenal mass is detected. Kidneys are without evidence of calculi. No ureteral calculi or hydronephrosis is seen. The bladder is unremarkable. Aorta is normal in caliber. Small and large bowel loops are normal in caliber. There is no obstruction. Appendix is unremarkable. No free fluid is seen. There is some diverticulosis of the sigmoid colon but no evidence of acute diverticulitis. There are postop changes in the anterior abdominal wall in the left lower quadrant. Prostate is unremarkable. IMPRESSION: 1. No evidence of urinary tract calculi or obstruction. 2. Uncomplicated diverticulosis. Dictated by: Dictated on workstation # [id number]
== END ==
LOC: RAD 11:40
PROVIDERS: ATTEND Nurse Practitioner Family
DX: K57.32 Diverticulitis of large intestine without perforation or abscess without bleeding (principal); R31.9 Hematuria, unspecified; R19.7 Diarrhea, unspecified
CPT/HCPCS: 36415; 74176; 80053; 85025; 87015; 87045; 87046; 87324; 87328; 87329; 87449; 87899; 89055

== ENCOUNTER → 2020-05-17 | Outpatient (CLI) | payer BC ==
[~2020-05-17] MED LIST changes: -CETI10TA20 PO; +CETI10TA49 PO; -PANT40TA3 PO; +PANT40TA52 PO
--- NOTE | 2020-05-17 08:11 | Diagnostic Imaging Report ---
EXAMINATION: CT Abdomen Pelvis without contrast. TECHNIQUE: Multiple contiguous axial images were obtained through the abdomen and pelvis without the use of intravenous contrast. All CT scans use one or more of the following dose optimizing techniques: automated exposure control, MA and/or KvP adjustment based on a patient size and exam type, or iterative reconstruction. HISTORY: Left lower quadrant pain COMPARISON: 08/09/2019 FINDINGS: Limited views of the lower thorax are unremarkable. The liver is normal without focal lesion. There is no biliary ductal dilation. Gallbladder is normal. Pancreas is normal. Spleen is normal. Adrenal glands are normal. The kidneys are normal. There is no hydronephrosis. Urinary bladder is normal. Visualized bowel is normal in caliber without obstruction or inflammation. There are postsurgical changes of hernia repair in the left lower quadrant. The appendix is normal. No fluid collection is seen. No free fluid or air. No abdominal or pelvic lymphadenopathy. Aorta is normal in caliber without aneurysm. There are no suspicious osseus lesions. IMPRESSION: 1. No acute abnormality in the abdomen or pelvis. Dictated by: Dictated on workstation # [id number]
== END ==
LOC: RAD 07:45
PROVIDERS: ATTEND Surgery
DX: R10.32 Left lower quadrant pain (principal)
CPT/HCPCS: 74176

== ENCOUNTER → 2022-06-02 | Outpatient (CLI) | payer BC ==
[~2022-06-02] MED LIST changes: -LISI-552 PO; +LISI20TA26 PO
--- NOTE | 2022-06-02 15:23 | Diagnostic Imaging Report ---
INDICATION: Stiffness when laying down or sitting for too long. TECHNIQUE: AP pelvis along with 2 views bilateral hip, 11:40 AM CORRELATION STUDY: None FINDINGS: The pelvis demonstrates no evidence for acute fracture. The pectineal lines and obturator rings are maintained. Small, benign-appearing sclerotic foci likely right iliac bone. Pubic symphysis and SI joints are unremarkable. Images of the bilateral hips demonstrate no evidence for acute fracture. Mild protuberance at the superior femoral head and neck articulation could be reflective of mild CAM impingement. Alignment is anatomic. The femoral head acetabular relationship is with very mild narrowing. The bony trabecular pattern is intact. Prior left inguinal hernia repair with mesh. IMPRESSION: Mild degenerative changes of the bilateral hips. Dictated by: Dictated on workstation # [id number]
== END ==
LOC: RAD 11:12
PROVIDERS: ATTEND Family Medicine
DX: M16.0 Bilateral primary osteoarthritis of hip (principal)
CPT/HCPCS: 73523